=== PATIENT | male | born 1965 | race Caucasian/White ===

== ENCOUNTER → 2020-09-13 | Outpatient (CLI) | payer BC, OTHER ==
[~2020-09-13] MED LIST: ASPIRIN EC81 MG PO; CIPRO250 MG PO; CLEOCIN HCL300 MG PO; GLUCOPHAGE 500500 MG PO; HUMALOG 10100 UNITS/ SC; K-DUR TAB 20 M20 MEQ PO; LANTUS INS100 UTS/M1 SC; LIPITOR40 MG PO; LISINOPRIL20 MG PO; ROCEPHIN 2 GM AD2 GM IV
== END ==
LOC: EXRD 08:31
DX: M54.5 Low back pain (principal); M25.551 Pain in right hip; M47.816 Spondylosis without myelopathy or radiculopathy, lumbar region; N20.0 Calculus of kidney
CPT/HCPCS: 72100; 73502

== ENCOUNTER → 2021-06-02 | Outpatient (CLI) | payer BC | LOC: KOH-I 12:56 | DX: M54.50 Low back pain, unspecified (principal); Z87.891 Personal history of nicotine dependence; M47.816 Spondylosis without myelopathy or radiculopathy, lumbar region; R91.1 Solitary pulmonary nodule; I25.10 Atherosclerotic heart disease of native coronary artery without angina pectoris; K44.9 Diaphragmatic hernia without obstruction or gangrene; R93.3 Abnormal findings on diagnostic imaging of other parts of digestive tract; K80.20 Calculus of gallbladder without cholecystitis without obstruction | CPT/HCPCS: 71271; 72100 ==

== ENCOUNTER → 2021-06-26 | Outpatient (CLI) | payer BC | LOC: EXRD 09:00 | DX: K80.20 Calculus of gallbladder without cholecystitis without obstruction (principal); K76.9 Liver disease, unspecified; R16.1 Splenomegaly, not elsewhere classified; K74.60 Unspecified cirrhosis of liver; I87.8 Other specified disorders of veins | CPT/HCPCS: 76700 ==